=== PATIENT | male | born 1945 | race Caucasian/White ===

== ENCOUNTER 2021-10-24 17:35 | Emergency (ER) | payer OTHER ==
[~2021-10-24 17:35] MED LIST: VALIUM 5 MG TAB5 MG PO
[2021-10-24 18:52] LABS: RED BLOOD COUNT 4.43 M/UL (4.20-5.50); WHITE BLOOD COUNT 6.2 K/UL (4.5-11.0)
[2021-10-24 19:22] LABS: BUN/CREATININE RATIO 13 (0-10)
[2021-10-25] MEDS ORDERED: CRESTOR40 MG PO (18:52)
[2021-10-25] MEDS ORDERED: METOCLOPRAMIDE H5 MG PO (18:53)
[2021-10-25] MEDS ORDERED: FISH OIL 1,0001 EAC5 PO (18:53)
[2021-10-25] MEDS ORDERED: ATENOLOL25 MG PO (18:53)
[2021-10-25] MEDS ORDERED: MYRBETRIQ25 MG PO (18:54)
[2021-10-25] MEDS ORDERED: GABAPENTIN100 MG PO (18:54)
[2021-10-25] MEDS ORDERED: ASPIRIN EC81 MG PO (18:55)
[2021-10-25] MEDS ORDERED: MEN'S ONE DAIL1 EACH PO (18:56)
[2021-10-25] MEDS ORDERED: ACETAMINOPHEN325 MG PO (18:57)
[2021-10-25] MEDS ORDERED: FLAXSEED OIL1000 M1 PO (18:58)
[2021-10-27] MEDS ORDERED: CRESTOR40 MG PO (10:57)
[2021-10-27] MEDS ORDERED: ISOSORBIDE MONO30 MG PO (10:57)
[2021-10-27] MEDS ORDERED: RANEXA500 MG PO (10:57)
[2021-10-27] MEDS ORDERED: PLAVIX75 MG PO (10:57)
== END 2021-10-24 21:45 | disposition home or self-care (01) ==
LOC: ER1 17:35
PROVIDERS: Physician Assistant
DX: I20.9 Angina pectoris, unspecified (principal); F41.9 Anxiety disorder, unspecified; I10 Essential (primary) hypertension; Z95.1 Presence of aortocoronary bypass graft; Z79.82 Long term (current) use of aspirin; Z88.1 Allergy status to other antibiotic agents; Z85.46 Personal history of malignant neoplasm of prostate
CPT/HCPCS: 71045; 80053; 82550; 82553; 83880; 84484; 85025; 93005; 99285; J7030

== ENCOUNTER 2021-10-25 12:22 | Observation (INO) | payer OTHER ==
[~2021-10-25] VITALS: Ht 172.7 cm; Wt 86.3 kg
[2021-10-25 13:59] LABS: HEMOGLOBIN 13.8 gm/dl (14.0-17.5); RED BLOOD COUNT 4.71 M/UL (4.20-5.50)
[2021-10-25 14:49] LABS: BUN/CREATININE RATIO 11 (0-10)
[2021-10-25] MEDS ORDERED: CRESTOR40 MG PO (18:52)
[2021-10-25] MEDS ORDERED: ATENOLOL25 MG PO (18:53)
[2021-10-25] MEDS ORDERED: FISH OIL 1,0001 EAC5 PO (18:53)
[2021-10-25] MEDS ORDERED: METOCLOPRAMIDE H5 MG PO (18:53)
[2021-10-25] MEDS ORDERED: MYRBETRIQ25 MG PO (18:54)
[2021-10-25] MEDS ORDERED: GABAPENTIN100 MG PO (18:54)
[2021-10-25] MEDS ORDERED: ASPIRIN EC81 MG PO (18:55)
[2021-10-25] MEDS ORDERED: MEN'S ONE DAIL1 EACH PO (18:56)
[2021-10-25] MEDS ORDERED: ACETAMINOPHEN325 MG PO (18:57)
[2021-10-25] MEDS ORDERED: FLAXSEED OIL1000 M1 PO (18:58)
[2021-10-26 03:50] LABS: HEMOGLOBIN 13.5 gm/dl (14.0-17.5); RED BLOOD COUNT 4.6 M/UL (4.20-5.50); WHITE BLOOD COUNT 7.5 K/UL (4.5-11.0)
[2021-10-26 04:15] LABS: BUN/CREATININE RATIO 13 (0-10)
[2021-10-26] MEDS ORDERED: HYDROCODON-ACE1 EAC4 PO (08:39)
[2021-10-26] MEDS ORDERED: DIAZEPAM5 MG PO (08:40)
[2021-10-27 01:34] LABS: HEMOGLOBIN 13.7 gm/dl (14.0-17.5); RED BLOOD COUNT 4.71 M/UL (4.20-5.50); WHITE BLOOD COUNT 7.1 K/UL (4.5-11.0)
[2021-10-27 01:58] LABS: BUN/CREATININE RATIO 14 (0-10)
[2021-10-27] MEDS ORDERED: ISOSORBIDE MONO30 MG PO (10:57)
[2021-10-27] MEDS ORDERED: PLAVIX75 MG PO (10:57)
[2021-10-27] MEDS ORDERED: RANEXA500 MG PO (10:57)
[2021-10-27] MEDS ORDERED: CRESTOR40 MG PO (10:57)
== END 2021-10-27 14:58 | disposition home or self-care (01) ==
LOC: ER1 12:22 → MED SURG 4 17:11 → CDU 17:11 → PROG CARE 10-26 00:32 → MED SURG 4 10-27 08:37
PROVIDERS: Physician Assistant; ADMIT Internal Medicine
PROC: 4A023N8 Measurement of Cardiac Sampling and Pressure, Bilateral, Percutaneous Approach (ICD-10-PCS; principal; 2021-10-26)
PROC: B2111ZZ Fluoroscopy of Multiple Coronary Arteries using Low Osmolar Contrast (ICD-10-PCS; 2021-10-26)
PROC: B21F1ZZ Fluoroscopy of Other Bypass Graft using Low Osmolar Contrast (ICD-10-PCS; 2021-10-26)
PROC: B2181ZZ Fluoroscopy of Left Internal Mammary Bypass Graft using Low Osmolar Contrast (ICD-10-PCS; 2021-10-26)
DX: I25.110 Atherosclerotic heart disease of native coronary artery with unstable angina pectoris (principal); R77.8 Other specified abnormalities of plasma proteins; I10 Essential (primary) hypertension; E87.1 Hypo-osmolality and hyponatremia; E04.1 Nontoxic single thyroid nodule; E78.5 Hyperlipidemia, unspecified; I25.2 Old myocardial infarction; G89.29 Other chronic pain; M54.9 Dorsalgia, unspecified; F32.A Depression, unspecified; F41.9 Anxiety disorder, unspecified; Z20.822 Contact with and (suspected) exposure to COVID-19; Z88.1 Allergy status to other antibiotic agents; Z85.46 Personal history of malignant neoplasm of prostate; Z87.891 Personal history of nicotine dependence; Z95.1 Presence of aortocoronary bypass graft; Z79.82 Long term (current) use of aspirin; Z79.899 Other long term (current) drug therapy
CPT/HCPCS: ECHO; 36415; 71045; 80048; 80053; 80061; 82550; 82553; 83735; 83880; 84484; 85025; 85730; 93005; 93306; 96374; 96375; 99152; 99153; 99285; C1769; G0378; J1644; J2250; J2270; J3010; J7040; Q9967; U0002

== ENCOUNTER 2022-02-04 20:44 | Emergency (ER) | payer MEDICARE ==
[~2022-02-04 20:44] MED LIST changes: +ACETAMINOPHEN325 MG PO; +ASPIRIN EC81 MG PO; +ATENOLOL25 MG PO; +CRESTOR40 MG PO; +DIAZEPAM5 MG PO; +FISH OIL 1,0001 EAC5 PO; +FLAXSEED OIL1000 M1 PO; +GABAPENTIN100 MG PO; +HYDROCODON-ACE1 EAC4 PO; +ISOSORBIDE MONO30 MG PO; +MEN'S ONE DAIL1 EACH PO; +METOCLOPRAMIDE H5 MG PO; +MYRBETRIQ25 MG PO; +PLAVIX75 MG PO; +RANEXA500 MG PO
[2022-02-04 21:20] LABS: HEMOGLOBIN 13.7 gm/dl (14.0-17.5); RED BLOOD COUNT 4.82 M/UL (4.20-5.50); WHITE BLOOD COUNT 5.5 K/UL (4.5-11.0)
[2022-02-04 21:40] LABS: BUN/CREATININE RATIO 18 (0-10)
== END 2022-02-04 23:51 | disposition short-term general hospital (02) ==
LOC: ER1 20:44
PROVIDERS: Emergency Medicine
DX: I20.9 Angina pectoris, unspecified (principal); I11.9 Hypertensive heart disease without heart failure; I25.2 Old myocardial infarction; Z95.1 Presence of aortocoronary bypass graft; Z79.82 Long term (current) use of aspirin; Z88.1 Allergy status to other antibiotic agents; Z87.891 Personal history of nicotine dependence; Z20.822 Contact with and (suspected) exposure to COVID-19
CPT/HCPCS: 71045; 80053; 82550; 82553; 84484; 85025; 96374; 99285; J1885; U0002